=== PATIENT | male | born 1980 | race Hispanic/Latino ===

== ENCOUNTER 2020-07-05 14:16 | Emergency (ER) | payer SELFPAY | END 2020-07-05 17:00 | disposition left against medical advice (07) | LOC: ED 14:16 ==

== ENCOUNTER 2021-09-11 21:05 | Emergency (ER) | payer SELFPAY ==
[2021-09-11 21:24] VITALS: BP 104/75
== END 2021-09-13 10:08 | disposition left against medical advice (07) ==
LOC: ED 21:05
DX: M25.511 Pain in right shoulder (principal); Z53.21 Procedure and treatment not carried out due to patient leaving prior to being seen by health care provider